=== PATIENT | female | born 1995 | race Hispanic/Latino ===

== ENCOUNTER 2021-12-16 17:45 | Inpatient (IN) | payer MEDICAID, SELFPAY ==
[2021-12-16] MEDS ORDERED: PROPOFOL 20 ML ONE (18:37)
[2021-12-16] MEDS ORDERED: Fentanyl 100 MCG/2 ML VIAL ONE ×2 (18:38→19:47)
[2021-12-16] MEDS ORDERED: Ondansetron PF 4 MG/2 ML Vial ONE (18:38)
[2021-12-16] MEDS ORDERED: Lidocaine 1% PF 5 ML VIAL ONE (18:38)
[2021-12-16] MEDS ORDERED: Dexamethasone 4 mg/ml Vial ONE (18:38)
[2021-12-16] MEDS ORDERED: Rocuronium Bromide 10 MG/ML (10ML VIAL) ONE (18:39)
[2021-12-16] MEDS ORDERED: Glycopyrrolate 0.2 MG/ML 5 ML SYRINGE ONE (19:39)
[2021-12-16] MEDS ORDERED: Ketorolac Tromethamine 30 MG/ML VIAL IVP PRN (20:14)
[2021-12-16 20:41] VITALS: BMI 35.0
[2021-12-16 21:18] LABS: SARS-CoV-2 NAA Rapid Test DETECTED (NotDetected)
[2021-12-16] MEDS ORDERED: Norepinephrine 8 MG/0.9% NS 250 ML IVPB SCH (21:30)
[2021-12-16] MEDS ORDERED: Clindamycin/D5W 900 MG in Premix Bag 1 BAG IVPB SCH (21:30)
[2021-12-16 21:42] LABS: Mean Corpuscular HGB CONC 33.5 g/dL (32.0-36.0); Mean Corpuscular Hemoglobin 29.7 pg (27.0-33.0); Mean Corpuscular Volume 88.6 fl (81.6-98.3); Mean Platelet Volume 10.6 fl (7.4-10.4); Platelet Count 211 10x3/uL (150-450); White Blood Cell (WBC) Count 12.4 10x3/uL (3.5-10.5)
[2021-12-16] MEDS ORDERED: Piperacillin/Tazobactam 3.375 GM in Sodium Chloride 0.9% 100 ML IVPB SCH (21:45)
[2021-12-16 21:51] LABS: ALT (SGPT) 15 U/L (8-55); AST (SGOT) 17 U/L (5-34); Alkaline Phosphatase 87 U/L (40-110); Anion Gap 13 mmol/L (10-20); BUN (Urea Nitrogen) 7 mg/dL (7.0-18.7); Bilirubin, Total 1.7 mg/dL (0.2-1.2); Calc. Creatinine Clearance 182 mL/min (70-130); Calcium 7.2 mg/dL (7.8-10.44); Carbon Dioxide 15 mmol/L (22-29); Chloride 114 mmol/L (98-107); Globulin 2.8 g/dL (2.4-3.5); Glucose 108 mg/dL (70-105); Magnesium 1.9 mg/dL (1.6-2.6); Potassium 3.2 mmol/L (3.5-5.1); Protein, Total 5.8 g/dL (6.0-8.3); Sodium 139 mmol/L (136-145)
[2021-12-16] MEDS: Sodium Chloride 0.9% 1,000 ML IV SCH (21:53)
[2021-12-16 21:58] LABS: MDiff Complete? YES
[2021-12-16] MEDS ORDERED: Piperacillin/Tazobactam 4.5 GM in Sodium Chloride 0.9% 100 ML IVPB SCH (22:00)
[2021-12-16 22:01] LABS: Band 34 % (5-11); Lymphocytes 7 % (21-51); Monocytes 3 % (0-10); Neutrophil 56 % (42-75)
[2021-12-16 22:03] LABS: Platelet Morphology Comment Appears Adequate; RBC Morphology Normal
[2021-12-16] MEDS ORDERED: Vancomycin HCl 750 MG in Sodium Chloride 0.9% 250 ML 250 ML IVPB SCH (23:00)
[2021-12-17] MEDS: Potassium Chloride 20 MEQ in Premix Bag 1 BAG IVPB SCH ×3 (00:30→05:19)
[2021-12-17] MEDS: Piperacillin/Tazobactam 3.375 GM in Sodium Chloride 0.9% 100 ML IVPB SCH ×3 (02:30→18:13)
[2021-12-17] MEDS: Sodium Chloride 0.9% 1,000 ML IV SCH ×3 (04:09→18:13)
[2021-12-17] MEDS ORDERED: FLU VACC QS2021-22(6MOS UP)/PF 60 MCG/0.5 ML SYRINGE IM ONE (04:15)
[2021-12-17] MEDS: Clindamycin/D5W 900 MG in Premix Bag 1 BAG IVPB SCH ×3 (05:19→21:28)
[2021-12-17 05:35] LABS: Hemoglobin 10.8 g/dL (12.0-15.5); Mean Corpuscular HGB CONC 33.1 g/dL (32.0-36.0); Mean Corpuscular Hemoglobin 29.4 pg (27.0-33.0); Mean Corpuscular Volume 88.8 fl (81.6-98.3); Mean Platelet Volume 10.2 fl (7.4-10.4); Platelet Count 189 10x3/uL (150-450); RBC Distribution Width 12.2 % (11.5-14.5); Red Blood Cell (RBC) Count 3.67 10x6/uL (3.90-5.03); White Blood Cell (WBC) Count 9.5 10x3/uL (3.5-10.5)
[2021-12-17 05:42] LABS: Anion Gap 12 mmol/L (10-20); BUN (Urea Nitrogen) 7 mg/dL (7.0-18.7); Calc. Creatinine Clearance 193 mL/min (70-130); Calcium 7.5 mg/dL (7.8-10.44); Carbon Dioxide 15 mmol/L (22-29); Chloride 115 mmol/L (98-107); Glucose 116 mg/dL (70-105); Potassium 4.5 mmol/L (3.5-5.1); Sodium 137 mmol/L (136-145)
[2021-12-17 05:48] LABS: Troponin I 0.012 ng/mL (< 0.028)
[2021-12-17 05:52] LABS: MDiff Complete? YES
[2021-12-17 05:56] LABS: Band 30 % (5-11); Lymphocytes 3 % (21-51); Neutrophil 67 % (42-75)
[2021-12-17 05:57] LABS: Platelet Morphology Comment Appears Adequate
[2021-12-17 05:58] LABS: RBC Morphology Normal
[2021-12-17] MEDS: Acetaminophen 325 MG TAB PO PRN ×3 (05:59→21:44)
[2021-12-17] MEDS: VANCOMYCIN 1.25 GM in Sodium Chloride 0.9% 250 ML 250 ML IVPB SCH ×3 (05:59→21:29)
[2021-12-17] MEDS: Pantoprazole 40 MG VIAL IVP SCH (08:59)
[2021-12-17] MEDS ORDERED: Piperacillin/Tazobactam 3.375 GM VIAL ONE (09:02)
[2021-12-17 14:40] LABS: Chlam.trachomatis by PCR,Urine Not Detected (NotDetected)
[2021-12-17 22:24] LABS: Vancomycin, Trough 18.5 ug/mL
[2021-12-18] MEDS: Piperacillin/Tazobactam 3.375 GM in Sodium Chloride 0.9% 100 ML IVPB SCH ×3 (02:41→17:41)
[2021-12-18 04:41] LABS: Anion Gap 11 mmol/L (10-20); BUN (Urea Nitrogen) 8 mg/dL (7.0-18.7); CRP (Inflammatory) 9.89 mg/dL (= or < 0.5); Calc. Creatinine Clearance 166 mL/min (70-130); Calcium 7.6 mg/dL (7.8-10.44); Carbon Dioxide 15 mmol/L (22-29); Chloride 116 mmol/L (98-107); Glucose 115 mg/dL (70-105); Potassium 4.1 mmol/L (3.5-5.1); Sodium 138 mmol/L (136-145)
[2021-12-18 04:53] LABS: Hemoglobin 9.9 g/dL (12.0-15.5); Mean Corpuscular HGB CONC 33.8 g/dL (32.0-36.0); Mean Corpuscular Volume 88.8 fl (81.6-98.3); Mean Platelet Volume 11.4 fl (7.4-10.4); Platelet Count 170 10x3/uL (150-450); RBC Distribution Width 12.4 % (11.5-14.5); White Blood Cell (WBC) Count 7.5 10x3/uL (3.5-10.5)
[2021-12-18] MEDS: Sodium Chloride 0.9% 1,000 ML IV SCH ×2 (05:42→17:42)
[2021-12-18] MEDS: Clindamycin/D5W 900 MG in Premix Bag 1 BAG IVPB SCH ×3 (05:42→21:53)
[2021-12-18 06:14] LABS: MDiff Complete? YES
[2021-12-18 06:15] LABS: Platelet Morphology Comment Appears Adequate; RBC Morphology Normal
[2021-12-18 06:17] LABS: Band 3 % (5-11); Eosinophils 1 % (0-10); Lymphocytes 19 % (21-51); Monocytes 4 % (0-10); Neutrophil 73 % (42-75)
[2021-12-18] MEDS: Enoxaparin Sodium 40 MG/0.4 ML SYRINGE SC SCH (08:43)
[2021-12-18] MEDS: Acetaminophen 325 MG TAB PO PRN (08:43)
[2021-12-18] MEDS: Pantoprazole 40 MG VIAL IVP SCH (08:43)
[2021-12-18] MEDS ORDERED: SUMAtriptan Succinate 50 MG TAB PO SCH (15:30)
[2021-12-18] MEDS: Acetaminophen 500 MG TAB PO SCH ×2 (16:34→20:24)
[2021-12-18] MEDS: Ondansetron PF 4 MG/2 ML Vial IVP PRN (16:59)
[2021-12-18] MEDS: Sodium Bicarbonate Tab 325 MG TAB PO SCH (20:25)
[2021-12-19] MEDS: Piperacillin/Tazobactam 3.375 GM in Sodium Chloride 0.9% 100 ML IVPB SCH ×3 (02:46→17:13)
[2021-12-19] MEDS: Clindamycin/D5W 900 MG in Premix Bag 1 BAG IVPB SCH ×3 (05:12→20:48)
[2021-12-19 05:33] LABS: Anion Gap 14 mmol/L (10-20); BUN (Urea Nitrogen) 9 mg/dL (7.0-18.7); Calc. Creatinine Clearance 108 mL/min (70-130); Carbon Dioxide 16 mmol/L (22-29); Chloride 115 mmol/L (98-107); Potassium 3.7 mmol/L (3.5-5.1); Sodium 141 mmol/L (136-145)
[2021-12-19 05:34] LABS: Calcium 7.7 mg/dL (7.8-10.44); Glucose 89 mg/dL (70-105)
[2021-12-19] MEDS ORDERED: SUMAtriptan Succinate 50 MG TAB PO SCH (08:15)
[2021-12-19] MEDS: Acetaminophen 500 MG TAB PO SCH ×3 (08:27→20:47)
[2021-12-19] MEDS: Enoxaparin Sodium 40 MG/0.4 ML SYRINGE SC SCH (08:27)
[2021-12-19] MEDS: Sodium Bicarbonate Tab 325 MG TAB PO SCH ×2 (08:27→20:48)
[2021-12-19] MEDS: Ondansetron PF 4 MG/2 ML Vial IVP PRN ×2 (12:30→20:48)
[2021-12-19] MEDS ORDERED: Lactated Ringer's 1,000 ML IV SCH (16:30)
[2021-12-20] MEDS: Piperacillin/Tazobactam 3.375 GM in Sodium Chloride 0.9% 100 ML IVPB SCH ×3 (02:41→17:39)
[2021-12-20 04:48] LABS: #Eosinphils 0.2 10x3/uL (0.0-0.5); #Monocytes 0.5 10x3/uL (0.0-1.1); #Neutrophils 2.8 10x3/uL (1.5-8.4); %Basophils 0.5 % (0.0-2.0); %Eosinophils 3.3 % (0.0-6.0); %Lymphocytes 40.4 % (18.0-47.0); %Monocytes 7.8 % (0.0-10.0); Hemoglobin 9.7 g/dL (12.0-15.5); Mean Corpuscular HGB CONC 31.8 g/dL (32.0-36.0); Mean Corpuscular Hemoglobin 28.4 pg (27.0-33.0); Mean Corpuscular Volume 89.2 fl (81.6-98.3); Mean Platelet Volume 11.7 fl (7.4-10.4); Platelet Count 205 10x3/uL (150-450); RBC Distribution Width 12.5 % (11.5-14.5); Red Blood Cell (RBC) Count 3.42 10x6/uL (3.90-5.03); White Blood Cell (WBC) Count 6.3 10x3/uL (3.5-10.5)
[2021-12-20] MEDS: Clindamycin/D5W 900 MG in Premix Bag 1 BAG IVPB SCH ×2 (06:11→14:59)
[2021-12-20 07:20] LABS: Anion Gap 14 mmol/L (10-20); BUN (Urea Nitrogen) 9 mg/dL (7.0-18.7); Calc. Creatinine Clearance 125 mL/min (70-130); Calcium 7.9 mg/dL (7.8-10.44); Carbon Dioxide 19 mmol/L (22-29); Chloride 111 mmol/L (98-107); Glucose 90 mg/dL (70-105); Potassium 3.7 mmol/L (3.5-5.1); Sodium 140 mmol/L (136-145)
[2021-12-20] MEDS ORDERED: Piperacillin/Tazobactam 3.375 GM VIAL ONE ×2 (08:04)
[2021-12-20] MEDS ORDERED: Sodium Chloride 0.9% 100 ML ONE (08:05)
[2021-12-20] MEDS: Acetaminophen 500 MG TAB PO SCH ×3 (09:45→20:30)
[2021-12-20] MEDS: Enoxaparin Sodium 40 MG/0.4 ML SYRINGE SC SCH (09:45)
[2021-12-20] MEDS: Sodium Bicarbonate Tab 325 MG TAB PO SCH ×2 (09:45→20:30)
[2021-12-20] MEDS: Ondansetron PF 4 MG/2 ML Vial IVP PRN (09:47)
[2021-12-20 20:46] VITALS: BP 133/68; TEMP 98
== END 2021-12-20 20:56 | disposition home or self-care (01) | DRG 770 ==
LOC: CSHERS 17:45 → CSHICU 20:05 → CSHTELE 12-17 16:40
PROVIDERS: ADMIT Family Medicine; ATTEND Hospitalist
PROC: 10D17ZZ Extraction of Products of Conception, Retained, Via Natural or Artificial Opening (ICD-10-PCS; principal; 2021-12-16)
PROC: 3E033XZ Introduction of Vasopressor into Peripheral Vein, Percutaneous Approach (ICD-10-PCS; 2021-12-16)
PROC: 8E0ZXY6 Isolation (ICD-10-PCS; 2021-12-16)
DX: O03.37 Sepsis following incomplete spontaneous abortion (principal); A41.51 Sepsis due to Escherichia coli [E. coli]; R65.21 Severe sepsis with septic shock; U07.1 COVID-19; J12.82 Pneumonia due to coronavirus disease 2019; N17.9 Acute kidney failure, unspecified; R51.9 Headache, unspecified
CPT/HCPCS: 36415; 80048; 80202; 83735; 84484; 85025; 86140; 87040; 87086; 87149; 87491; 87591; 88305; 93005; 93010; 99285; C9113; J1100; J1650; J2405; J2543; J2704; J3010; J3370; J3480; J3490; J7050; J7120; U0002

== ENCOUNTER 2022-12-29 20:07 | Day surgery (SDC) | payer OTHER ==
[2022-12-29] MEDS ORDERED: hydrALAZINE 20 MG/ML VIAL SLOW IVP PRN (20:40)
[2022-12-29 21:18] VITALS: BMI 37.8
[2022-12-29 21:20] LABS: Fetal Membranes Rupture No Membranes Rupture (No Rupture)
[2022-12-29 23:12] LABS: Bilirubin Neg (Negative); Blood, Urine Negative (Negative); Clarity Slightly Cloudy (Clear); Glucose, Urine (Dipstick) Normal (Negative); Ketone, Urine Negative (Negative); Leukocyte 25 (Negative); Nitrite Negative (Negative); Protein, Urine (Dipstick) 15 mg/dl (Neg-Trace); pH, Urine 6.5 (5.0-9.0)
[2022-12-29 23:44] LABS: Bacteria/HPF None Seen HPF (None Seen); CAUTI Indications for Culture Pregnancy; RBC/HPF None Seen HPF (0-3); Squamous Epithelial 0-3 HPF (0-3); WBC/HPF 0-3 HPF (0-3)
[2022-12-29 23:45] LABS: Urine Culture Reflex Yes Yes
== END 2022-12-30 00:40 | disposition home or self-care (01) ==
LOC: CSHLD/OP 20:07
PROVIDERS: ATTEND Obstetrics & Gynecology
DX: O23.593 Infection of other part of genital tract in pregnancy, third trimester (principal); N89.8 Other specified noninflammatory disorders of vagina; Z3A.33 33 weeks gestation of pregnancy
CPT/HCPCS: 81001; 84112; 87086; 87480; 87510; 87660

== ENCOUNTER 2023-01-19 15:28 | Day surgery (SDC) | payer OTHER ==
[2023-01-19] MEDS ORDERED: hydrALAZINE 20 MG/ML VIAL SLOW IVP PRN (16:24)
[2023-01-19 17:28] VITALS: BMI 30.2
[2023-01-19 17:31] LABS: Fetal Membranes Rupture No Membranes Rupture (No Rupture)
== END 2023-01-19 18:00 | disposition home or self-care (01) ==
LOC: CSHLD/OP 15:28
PROVIDERS: ATTEND Obstetrics & Gynecology
DX: O26.893 Other specified pregnancy related conditions, third trimester (principal); R10.2 Pelvic and perineal pain; O99.891 Other specified diseases and conditions complicating pregnancy; M54.50 Low back pain, unspecified; Z79.899 Other long term (current) drug therapy; Z3A.36 36 weeks gestation of pregnancy
CPT/HCPCS: 84112; 99284